=== PATIENT | female | born 1940 | race Caucasian/White ===

== ENCOUNTER 2020-03-01 13:47 | Emergency (ER) | payer MEDICARE, SELFPAY ==
--- NOTE | ~2020-03-01 | XR_ITS ---
EXAMINATION: XR chest 2V EXAM DATE: 03/01/2020 14:51 INDICATION: Chest pain, transient alteration of awareness. Head and neck pain. TECHNIQUE: Frontal and lateral projections of the chest obtained and reviewed. There is no prior [place] dy for comparison. FINDINGS: The lungs are clear. There are no pleural effusions. The cardiomediastinal silhouette is within normal limits. There is no pneumothorax suspected. The bones and soft tissues are unremarkab le. IMPRESSION: No acute cardiopulmonary findings. Reviewed, dictated and finalized at location A.
[2020-03-01 13:50] VITALS: BP 196/61; PULSE 87; RESP 16; TEMP 36.9; O2SAT 100
--- NOTE | 2020-03-01 14:17 | ECG_ITS ---
Measurements Intervals [place] Rate: 73 P: TN: 0 QRS: -1 QRSD: 80 T: 8 QT: 399 QTc: 441 Interpretive Statements SINUS RHYTHM WITH SINUS ARRHYTHMIA BORDERLINE ST-T WAVE ABNORMALITY- ANTEROLAT/INF LEADS BASELINE ARTIFACT- I, II, III, AVR, AVL, AVF, V1-V4 BORDERLINE ECG Electronically Signed On 03-01-2020 14:25:34 CDT by Nazario Moreau D.O.
[2020-03-01 14:41] LABS: Basophils Percent Auto 0.3 % (0.2-1.2); Eosinophils Percent Auto 0.2 % (0-4.4); Hematocrit 37.7 % (37.0-47.0); Hemoglobin 12.6 g/dL (12.0-15.0); Immature Granulocyte Absolute 0.02 K/mm3 (0.00-0.031); Immature Granulocyte Percent A 0.3 % (0-0.5); Lymphocytes Absolute Auto 0.73 K/mm3 (0.9-3.2); Lymphocytes Percent Auto 12.6 % (18.3-44.2); Mean Corpuscular HGB Conc 33.4 g/dl (32-36); Mean Corpuscular Hemoglobin 29.5 pg (26-34); Mean Corpuscular Volume 88.3 fl (80-100); Mean Platelet Volume 10.1 fl (7.4-10.4); Monocytes Absolute Auto 0.3 K/mm3 (0.1-0.6); Monocytes Percent Auto 5.2 % (2.6-8.5); Neutrophils Absolute Auto 4.7 K/mm3 (1.3-6.7); Neutrophils Percent Auto 81.4 % (45.5-73.1); Platelet Count Result 206 k/mm3 (150-375); Red Blood Count 4.27 M/mm3 (4.2-5.4); Red Cell Distribution Width 12.5 % (11.5-14.5); White Blood Count 5.8 K/mm3 (4.5-10.0)
[2020-03-01 14:50] LABS: Prothrombin Time 12.7 Seconds (11.1-14.7)
[2020-03-01 14:51] LABS: Partial Thromboplastin Time 26.9 SECONDS (22.3-36.8)
[2020-03-01 14:52] LABS: Alanine Aminotransferase 16 U/L (4-35); Albumin Level 4.3 g/dL (3.5-5.1); Alkaline Phosphatase 51 U/L (38-126); Anion Gap 9 mmol/L (8-16); Aspartate Amino Transferase 24 U/L (14-36); Bilirubin,Total 0.7 mg/dL (0.2-1.3); Blood Urea Nitrogen 14 mg/dL (7-17); Calcium 8.7 mg/dL (8.4-10.2); Carbon Dioxide 26 mmol/L (22-30); Chloride 105 mmol/L (98-107); Estimated CRCL calculation 49 ml/min; Estimated Glomerular Filt Rate > 60; Glucose 122 mg/dL (65-105); Lipase 92 U/L (23-300); Sodium 140 mmol/L (137-145)
[2020-03-01 15:04] LABS: Troponin I < 0.012 ng/mL (0.000-0.034)
[2020-03-01 15:15] LABS: Add Urine Microscopic? YES; Appearance Urine Clear (Clear); Bilirubin Urine Negative (Negative); Blood Urine Negative (Negative); Color Urine Yellow (Yellow); Glucose Urine UA Negative (Negative); Ketones Urine Negative (Negative); Leukocyte Esterase Ur Negative LEU/UL (Negative); Mucus Urine Rare /lpf; Nitrate Urine Negative (Negative); Protein Urine 1+ mg/dL (Negative); Specific Grav Ur 1.013 (1.001-1.035); Squamous Epithelial Cell Urine Rare /hpf (Few); Urobilinogen Urine Negative mg/dL (<2.0); WBC Urine 0-3 /hpf
--- NOTE | 2020-03-01 15:17 | PC.NURSE ---
rn report from benja
--- NOTE | 2020-03-01 15:17 | PC.NURSE ---
rn report from benja
--- NOTE | 2020-03-01 15:31 | PC.NURSE ---
Report to MONIQUE Gramajo, to continue care. Awaiting bed assignment.
--- NOTE | 2020-03-01 15:43 | ED.AMS ---
HPI - Altered Mental Status General Chief Complaint: Altered Mental Status Stated Complaint: abd pain, trembling Time Seen by Provider: 03/01/20 14:05 History of Present Illness HPI narrative: Patient is a 79-year-old female who presents ER with complaints of some mild epigastric discomfort that goes into her chest. She is unable to give a history as to how long it has been going on, what makes it better or worse, or its quality due to her dementia. Family brought her here today because he reports she has been wearing close in different layers throughout the week. Today while wearing shorts she reported that she was frigid and then had an episode of shaking while she was sitting on the couch but was totally lucid. Related Data Home Medications Medication Instructions Recorded Confirmed Unable to Obtain Home Medications 03/01/20 03/01/20 Allergies Allergy/AdvReac Type Severity Reaction Status Date / Time acetaminophen Allergy Unknown Verified 03/01/20 14:55 [From Darvocet-N] amlodipine [From Lotrel] Allergy Unknown Verified 03/01/20 14:55 azithromycin [From Zithromax] Allergy Unknown Verified 03/01/20 14:55 benazepril [From Lotrel] Allergy Unknown Verified 03/01/20 14:55 blue dye Allergy Unknown Verified 03/01/20 14:55 candesartan [From Atacand] Allergy Unknown Verified 03/01/20 14:55 cefuroxime Allergy Unknown Verified 03/01/20 14:55 ciprofloxacin [From Cipro] Allergy Unknown Verified 03/01/20 14:55 clindamycin Allergy Unknown Verified 03/01/20 14:55 doxycycline Allergy Unknown Verified 03/01/20 14:55 erythromycin base Allergy Unknown Verified 03/01/20 14:55 gluten Allergy Unknown Verified 03/01/20 14:55 hydrocodone [From Vicodin] Allergy Unknown Verified 03/01/20 14:55 ibuprofen Allergy Unknown Verified 03/01/20 14:55 iodine Allergy Unknown Verified 03/01/20 14:55 lincomycin Allergy Unknown Verified 03/01/20 14:55 metronidazole [From Flagyl] Allergy Unknown Verified 03/01/20 14:55 nut - unspecified Allergy Unknown Verified 03/01/20 14:55 olmesartan [From Benicar] Allergy Unknown Verified 03/01/20 14:55 perindopril [From Aceon] Allergy Unknown Verified 03/01/20 14:55 propoxyphene Allergy Unknown Verified 03/01/20 14:55 Sulfa (Sulfonamide Allergy Unknown Verified 03/01/20 14:55 Antibiotics) sulfamethoxazole Allergy Unknown Verified 03/01/20 14:55 [From Bactrim] trimethoprim [From Bactrim] Allergy Unknown Verified 03/01/20 14:55 venom-wasp Allergy Unknown Verified 03/01/20 14:55 Review of Systems Review of Systems: ROS unobtainable: Yes unobtainable due to mental status PMFSH Past Medical History Medical History (Updated 03/01/20 @ 15:50 by Foster Velazquez MD) Dementia Hypertension Social History Social History (Updated 03/01/20 @ 15:47 by Foster Velazquez MD) Smoking status: Never smoker Additional living arrangements comments: Lives at home with her . Exam Narrative: Exam Narrative: GENERAL: Well-appearing, well-nourished, and in no acute distress. HEAD: Normocephalic, atraumatic. EYES: PERRL and EOMI. ENT: Mucous membranes moist. CHEST: Clear to auscultation. No respiratory distress. HEART: Regular rate and rhythm. Normal peripheral pulses. ABDOMEN: Soft, nontender, nondistended, normal active bowel sounds. EXTREMITIES: Normal range of motion. No edema. NEURO: Alert and oriented x2. PSYCH: Normal mood and affect. Course Course Emergency Course: Unremarkable w/u, d/c. Vital Signs Vital signs: Vital Signs Temperature 98.4 F 03/01/20 13:50 Pulse Rate 87 03/01/20 13:50 Respiratory Rate 16 03/01/20 13:50 Blood Pressure 196/61 H 03/01/20 13:50 Pulse Oximetry 100 03/01/20 13:50 Temperature 98.4 F 03/01/20 13:50 Pulse Rate 87 03/01/20 13:50 Respiratory Rate 16 03/01/20 13:50 Blood Pressure 196/61 H 03/01/20 13:50 Pulse Oximetry 100 03/01/20 13:50 MDM - Altered Mental Status Lab Data Result diagrams:
[2020-03-01 16:59] VITALS: BP 107/66; PULSE 86; RESP 18; O2SAT 96
== END 2020-03-01 17:00 | disposition home or self-care (01) ==
PROVIDERS: Emergency Provider Emergency Medicine; PCP Internal Medicine
DX: F03.90 Unspecified dementia, unspecified severity, without behavioral disturbance, psychotic disturbance, mood disturbance, and anxiety (principal); I10 Essential (primary) hypertension
CPT/HCPCS: 36415; 51701; 71046; 80053; 81001; 83690; 84484; 85025; 85610; 85730; 93005; 99284

== ENCOUNTER 2021-12-06 16:13 | Emergency (ER) | payer MEDICARE, SELFPAY ==
--- NOTE | ~2021-12-06 | XR_ITS ---
EXAMINATION: XR chest 1V portable Exam Date/Time: 12/06/2021 17:04 CDT HISTORY: weakness Comparison: 03/01/2020. RESULT: Lines, tubes, and devices: None. Lungs and pleura: Streaky opacities in the left lung base with minimal volume loss. Cardiomediastinal silhouette: Stable. Other: No acute osseous or upper abdominal finding. IMPRESSION: Left basilar atelectasis. Infection is not excluded. Reviewed, dictated and finalized at location K.
--- NOTE | ~2021-12-06 | CT_ITS ---
EXAMINATION: CT abdomen pelvis wo con DATE: 12/06/2021 18:20 INDICATION: abdominal pain, nausea TECHNIQUE: Computed tomography (CT) of the abdomen and pelvis was performed without intravenous contr ast. Automated exposure control and iterative reconstruction technique were employed. The dose-length product was 790.71 mGy-cm. COMPARISON: None. FINDINGS: Lower thorax: Left basilar scar/atelectasis, overlying senescent changes. Mitral calcification. Small hiatal hernia. Liver: Multiple simple liver cysts. Biliary/Gallbladder: Suggestion of very mild wall thickening and inflammatory change. No bile duct di lation. Pancreas: Mild chronic atrophy. Spleen: Normal. Adrenals:No mass. Kidneys: Bilateral parapelvic cysts. GI tract: No small or large bowel dilation. Appendix not visualized. Diverticulosis without diverticu litis. Mesentery/Peritoneum: No ascites, mass, or free air. Retroperitoneum: No mass. Atherosclerotic abdominal aortic and/or arterial calcifications. Pelvis: Pelvic organs are within normal limits. Calcified fibroids. Soft Tissues: Soft tissues and body wall unremarkable. Bones: No acute osseous finding. IMPRESSION: Mild gallbladder wall thickening and inflammatory change, may represent acute cholecystitis in the ap propriate clinical context. Reviewed, dictated and finalized at location K. IMPRESSION: Mild gallbladder wall thickening and inflammatory change, may represent acute c holecystitis in the appropriate clinical context.
--- NOTE | ~2021-12-06 | CT_ITS ---
EXAMINATION: CT brain wo con DATE: 12/06/2021 18:20 INDICATION: altered mental status . TECHNIQUE: Computed tomography (CT) of the head was performed without intravenous contrast. The mA wa s adjusted according to patient size. Iterative reconstruction technique was employed. The dose-lengt h product was 605.33 mGy-cm. COMPARISON: None FINDINGS: No acute intracranial hemorrhage or extra-axial fluid collection. No hydrocephalus, mass, or herniation. No acute ischemic infarct. Unremarkable dural venous sinus attenuation. No acute osseous abnormality. The aerated spaces are clear. Mild atrophy and chronic white matter change. Old lacunar infarcts in the left basal ganglia. Atheros clerotic intracranial calcifications. IMPRESSION: No acute intracranial process. Reviewed, dictated and finalized at location K.
[2021-12-06 16:13] VITALS: BP 137/68; PULSE 61; RESP 18; TEMP 36.9; O2SAT 97
[2021-12-06 17:17] LABS: Appearance Urine Clear (Clear); Basophils Percent Auto 0.2 % (0.2-1.2); Bilirubin Urine 1+ (Negative); Blood Urine Negative (Negative); Color Urine Yellow (Yellow); Glucose Urine UA Negative (Negative); Hematocrit 36.7 % (37.0-47.0); Hemoglobin 12.4 g/dL (12.0-15.0); Immature Granulocyte Absolute 0.03 K/mm3 (0.00-0.031); Immature Granulocyte Percent A 0.6 % (0-0.5); Ketones Urine 4+ mg/dL (Negative); Leukocyte Esterase Ur Negative LEU/UL (Negative); Lymphocytes Absolute Auto 0.53 K/mm3 (0.9-3.2); Mean Corpuscular HGB Conc 33.8 g/dl (32-36); Mean Corpuscular Hemoglobin 29.8 pg (26-34); Mean Corpuscular Volume 88.2 fl (80-100); Monocytes Absolute Auto 0.1 K/mm3 (0.1-0.6); Monocytes Percent Auto 1.9 % (2.6-8.5); Neutrophils Absolute Auto 4.6 K/mm3 (1.3-6.7); Neutrophils Percent Auto 87.3 % (45.5-73.1); Nitrate Urine Negative (Negative); Platelet Count Result 204 k/mm3 (150-375); Protein Urine Negative (Negative); Red Blood Count 4.16 M/mm3 (4.2-5.4); Red Cell Distribution Width 11.8 % (11.5-14.5); Urobilinogen Urine 0.2 mg/dL (<2.0); White Blood Count 5.3 K/mm3 (4.5-10.0)
[2021-12-06 17:20] LABS: Squamous Epithelial Cell Urine Rare /hpf (Few); WBC Urine 0-3 /hpf
[2021-12-06] MEDS: SODIUM CHLORIDE 0.9% IV 1,000 ML 999 ML IV CONT ×2 (17:25→19:02)
[2021-12-06 17:27] LABS: Add Urine Microscopic? YES
[2021-12-06 17:28] LABS: Alanine Aminotransferase 19 U/L (6-35); Albumin Level 4.2 g/dL (3.5-5.1); Alkaline Phosphatase 70 U/L (38-126); Anion Gap 7 mmol/L (8-16); Aspartate Amino Transferase 27 U/L (14-36); Bilirubin,Total 0.3 mg/dL (0.2-1.3); Blood Urea Nitrogen 24 mg/dL (7-17); Calcium 8.8 mg/dL (8.4-10.2); Carbon Dioxide 33 mmol/L (22-30); Chloride 100 mmol/L (98-107); Estimated CRCL calculation 34 ml/min; Estimated Glomerular Filt Rate 53; Glucose 310 mg/dL (65-110); Magnesium 1.9 mg/dL (1.6-2.3); Potassium 3.3 mmol/L (3.4-5.0); Sodium 140 mmol/L (137-145)
[2021-12-06 17:31] LABS: Prothrombin Time 12.6 Seconds (11.1-14.7)
[2021-12-06 17:32] LABS: Partial Thromboplastin Time 27.2 SECONDS (22.3-36.8)
[2021-12-06 17:52] LABS: SARS-CoV-2 RNA PCR Positive
--- NOTE | 2021-12-06 17:58 | ED.WEAKNESS ---
HPI - Weakness General Chief complaint: Weakness Stated complaint: ALZHEIMERS WITH FTT Time Seen by Provider: 12/06/21 16:22 Source: family (I Spoke with son over the phone), EMS and RN notes reviewed Mode of arrival: EMS Limitations: dementia History of Present Illness HPI Narrative: This is an 81 year old female with history of dementia who presents for evaluation of decreased PO intake. Patient's son states patient was diagnosed with COVID 1.5 weeks ago. Patient had increased lethargy for several days and it is reported that she has not eaten in 4 days. Nursing staff and family are unable to get patient to ER. They are worried patient is dehydrated. PAtient complains about being cold and being scared. She does not have any specific complaints Unable to give history. They are not aware of patient falling or complaining about pain. Related Data Allergies Allergy/AdvReac Type Severity Reaction Status Date / Time acetaminophen Allergy Unknown Verified 12/06/21 16:17 [From Darvocet-N] amlodipine [From Lotrel] Allergy Unknown Verified 12/06/21 16:17 azithromycin [From Zithromax] Allergy Unknown Verified 12/06/21 16:17 benazepril [From Lotrel] Allergy Unknown Verified 12/06/21 16:17 blue dye Allergy Unknown Verified 12/06/21 16:17 candesartan [From Atacand] Allergy Unknown Verified 12/06/21 16:17 cefuroxime Allergy Unknown Verified 03/01/20 14:55 ciprofloxacin [From Cipro] Allergy Unknown Verified 12/06/21 16:17 clindamycin Allergy Unknown Verified 12/06/21 16:17 doxycycline Allergy Unknown Verified 12/06/21 16:17 erythromycin base Allergy Unknown Verified 12/06/21 16:17 gluten Allergy Unknown Verified 12/06/21 16:17 hydrocodone [From Vicodin] Allergy Unknown Verified 12/06/21 16:17 ibuprofen Allergy Unknown Verified 12/06/21 16:17 iodine Allergy Unknown Verified 12/06/21 16:17 lincomycin Allergy Unknown Verified 12/06/21 16:17 metronidazole [From Flagyl] Allergy Unknown Verified 12/06/21 16:17 nut - unspecified Allergy Unknown Verified 12/06/21 16:17 olmesartan [From Benicar] Allergy Unknown Verified 12/06/21 16:17 perindopril [From Aceon] Allergy Unknown Verified 12/06/21 16:17 propoxyphene Allergy Unknown Verified 12/06/21 16:17 Sulfa (Sulfonamide Allergy Unknown Verified 12/06/21 16:17 Antibiotics) sulfamethoxazole Allergy Unknown Verified 12/06/21 16:17 [From Bactrim] trimethoprim [From Bactrim] Allergy Unknown Verified 12/06/21 16:17 venom-wasp Allergy Unknown Verified 12/06/21 16:17 Review of Systems Review of Systems: ROS unobtainable: Yes unobtainable due to mental status PMFSH Past Medical History Medical History Dementia Hypertension Social History Social History Smoking status: Never smoker Additional living arrangements comments: Lives at home with her . Exam Const: General: no acute distress Other: patient is laying with eyes closed. She will open them and follow commands HENMT: Head: normal to inspection Face and sinus: normal facial exam Mouth: Yes Normal oral and palatal mucosa present, Yes lip normal and Yes moist mucous membranes Eyes: Pupils: Equal, round and reactive pupils present EOM: EOMs intact bilaterally Resp: Effort & Inspection: normal respiratory effort Auscultation: clear to auscultation bilaterally Cardio: Rate: regular rate Rhythm: regular rhythm Heart sounds: no murmurs GI: GI Palp: Yes Soft to palpation, No Tenderness to palpation present (GI), No Guarding due to palpation present (GI) and No Rigid due to palpation Auscultation: normal bowel sounds Skin: General skin exam: normal color Rashes: no rashes Wounds: no wounds Neuro: General: moves all extremities Speech: normal speech Other: oriented to person Extrem: General: normal to inspection Psych: Mental Status: mental status grossly normal Aff
[2021-12-06] MEDS: POTASSIUM CHLORIDE 20 MEQ TABLET 40 MEQ PO (19:02)
--- NOTE | 2021-12-06 19:19 | PC.NURSE ---
unable to perform EKG d/t patient being combative. Dr Lundberg aware.
[2021-12-06] MEDS: AMOXICILLIN/CLAVULANATE K 875-125 MG TAB 1 TABLET PO (19:58)
[2021-12-06 19:59] VITALS: BP 142/62; PULSE 84; RESP 16; O2SAT 96
[2021-12-06 23:29] VITALS: BP 149/70; PULSE 72; TEMP 36.8; O2SAT 96
== END 2021-12-07 01:01 ==
PROVIDERS: Emergency Provider General Practice
DX: U07.1 COVID-19 (principal); E87.6 Hypokalemia; R73.9 Hyperglycemia, unspecified; R63.0 Anorexia; F03.90 Unspecified dementia, unspecified severity, without behavioral disturbance, psychotic disturbance, mood disturbance, and anxiety; I10 Essential (primary) hypertension; R91.8 Other nonspecific abnormal finding of lung field; Z68.22 Body mass index [BMI] 22.0-22.9, adult
CPT/HCPCS: 36415; 51701; 70450; 71045; 74176; 80053; 81001; 83605; 83735; 85025; 85610; 85730; 96360; 96361; 99284; A9270; C9803; J7030; U0003; U0005